=== PATIENT | female | born 1960 | race African-American/Black ===

== ENCOUNTER 2016-11-04 10:06 | Day surgery (SDC) | payer OTHER ==
[~2016-11-04 10:06] MED LIST: ASAB PO; ATV.5 PO; DIL4TAB PO; FLEX PO; KAPIDEX60 MG PO; L20 PO; NEUR300 PO; PERCOCET 7.5/321 TAB PO; TIAZA3 PO; TOPXL25 PO; TRULICITY1.5 MG/0.5 SQ; VALIUM10 MG PO
[2016-11-07] MEDS ORDERED: CRESTOR20 MG PO (14:24)
[2016-11-07] MEDS ORDERED: LOP25 PO (14:25)
[2016-11-07] MEDS ORDERED: LEVSINTAB PO (14:26)
[2016-11-07] MEDS ORDERED: LEVSINTAB SL (14:26)
[2016-11-07] MEDS ORDERED: COZ25 PO (14:26)
[2016-11-07] MEDS ORDERED: KAPIDEX60 MG PO (14:29)
[2016-11-07] MEDS ORDERED: PRADAXA150 MG PO (14:30)
[2016-12-15] MEDS ORDERED: L40 PO (18:02)
[2016-12-15] MEDS ORDERED: XARELTO20 MG PO (18:03)
[2016-12-15] MEDS ORDERED: NEXIUM40 PO (18:03)
[2017-02-12] MEDS ORDERED: SACU1TAB4 PO (16:23)
[2017-02-12] MEDS ORDERED: COREG3 PO (16:26)
[2017-02-12] MEDS ORDERED: P5 PO (16:28)
[2017-02-12] MEDS ORDERED: VOLTXR100 PO (16:31)
[2017-02-12] MEDS ORDERED: PLAQ200B PO (16:39)
[2017-02-17] MEDS ORDERED: AMB5 PO (09:03)
[2017-02-17] MEDS ORDERED: NORCO1 TA2 PO (09:04)
== END 2016-11-04 23:59 | disposition home or self-care (01) ==
LOC: DMU 10:06
DX: R07.9 Chest pain, unspecified (principal); R13.10 Dysphagia, unspecified; K21.9 Gastro-esophageal reflux disease without esophagitis; I10 Essential (primary) hypertension
CPT/HCPCS: 91034; A9270-GY; C1894

== ENCOUNTER 2016-11-12 11:16 | Inpatient (IN) | payer OTHER ==
[2016-11-10 09:39] LABS: BASOPHILS 0.2 %; BASOPHILS ABSOLUTE 0.01 10/3/uL (0.0-0.16); EOSINOPHILS 0.6 %; EOSINOPHILS ABSOLUTE 0.04 10/3/uL (0.0-0.53); HEMATOCRIT 39.4 % (36.0-48.0); HEMOGLOBIN 12.2 g/dL (12.0-16.0); IMMATURE GRANULOCYTES 0.2 %; IMMATURE GRANULOCYTES ABSOLUTE 0.01 10/3/uL (0.0-0.11); LYMPHOCYTES 32.7 %; LYMPHOCYTES ABSOLUTE 2.03 10/3/uL (0.67-4.30); MEAN CORPUSCULAR HEMOGLOB 24.9 pg (26.0-34.0); MEAN CORPUSCULAR VOLUME 80.4 fL (80-100); MEAN PLATELET VOLUME 10.2 fL (9.2-13.0); MONOCYTES 5.8 %; MONOCYTES ABSOLUTE 0.36 10/3/uL (0.21-1.20); NEUTROPHILS 60.5 %; NEUTROPHILS ABSOLUTE 3.76 10/3/uL (2.02-8.40); PLATELET COUNT 214 10/3/uL (150-400); RBC DISTRIBUTION WIDTH 18.4 % (12.0-16.0)
[2016-11-10 09:40] LABS: MANUAL DIFF NO %; WHITE BLOOD CELLS 6.2 10/3/uL (4.5-10.5)
[2016-11-10 09:52] LABS: A/G RATIO 1.1 (0.7-1.9); ALBUMIN 3.7 G/DL (3.5-5.0); BUN (BLOOD UREA NITROGEN) 11 MG/DL (6-23); CALCIUM, SERUM 10.4 MG/DL (8.5-10.4); CHLORIDE, SERUM 103 MMOL/L (96-112); CO2 (CARBON DIOXIDE) 29 MMOL/L (24-34); GFR AFRICAN AMERICAN 65 ML/MIN (>=60); GFR NON AFRICAN AMERICAN 56 ML/MIN (>=60); GLOBULIN 3.3 G/DL (2.5-4.1); SGOT(AST) 21 U/L (5-40); SGPT(ALT) 21 U/L (5-65); SODIUM, SERUM 142 MMOL/L (135-148); TOTAL BILIRUBIN 0.5 MG/DL (0-1.2)
[2016-11-10 09:53] LABS: ALKALINE PHOSPHATASE 90 U/L (45-117); GLUCOSE, SERUM 148 MG/DL (60-99); POTASSIUM, SERUM 3.6 MMOL/L (3.5-5.3)
--- NOTE | ~2016-11-12 | OP ---
Record Of Operation [facility] [address] [place]. [address] NAME: MARIO DENSON : 62 STATUS : ADM IN PAT#: [id number] AGE: 56 ADM/REG DATE : 11/12/16 MR#: [id number] REPORT SERV DATE: 11/13/16 DICTATED BY: JACKSON CAMPBELL DATE: 11/13/16 REPORT STATUS : Draft TRANSCRIBED BY: MODJoan DATE: 11/13/16 DATE OF PROCEDURE: 11/12/2016 PREOPERATIVE DIAGNOSIS: Persistent dysphagia status post redo hiatal hernia repair and Alli fundoplication in 2016. POSTOPERATIVE DIAGNOSIS: Persistent dysphagia status post redo hiatal hernia repair and Alli fundoplication in 2016. PROCEDURE: Laparoscopic lysis of adhesions, revision of Alli/Toupet partial fundoplication, and esophageal dilatation. RESIDENT SURGEON: Marlin Orourke MD. ANESTHESIA: General. ESTIMATED BLOOD LOSS: 500 mL. DETAILS OF PROCEDURE: The patient arrived in the operating suite and was placed on the table in supine position. General anesthesia obtained via an endotracheal tube. The patient placed in modified lithotomy. Melissa catheter was inserted. The abdomen was prepped and draped in a sterile manner. 0.5% Marcaine with epinephrine was infiltrated over the supraumbilical left rectus muscle. A small incision was performed. A 10 mm blunt trocar was inserted. The peritoneal cavity was insufflated with CO2 gas to 15 mmHg pressure. The patient was placed in reverse Trendelenburg. Additional trocars were inserted in the bilateral anterior axillary lines, left subxiphoid, and right paramedian regions. Instruments were introduced. The lateral segment of the left lobe of the liver was retracted anteriorly. There were intense adhesions of stomach to the liver, which were carefully taken down both bluntly and sharply. There never appeared to be any gastric or esophageal injury. There was a serosal tear of the stomach that was ultimately repaired with 0 Ethibond suture. Mobilization gradually was performed quite tediously over a couple of hours and it became apparent where the prior sutures from fundoplication were and these were gradually removed. A 36 dilator could not be placed into the stomach initially, but once all sutures were released allowing the 360-degree wrap to effectively become a 270- degree wrap up to a 44 dilator were easily passed into the stomach without resistance. There was no evidence of hiatal hernia and the crura did not appear excessively tight. Hemostasis appeared good. Nu-Knit Surgicel was placed along the posterior aspect of the lateral segment of the left lobe of the liver, which had previously bled, but was not at the completion of the procedure. The peritoneal cavity was desufflated. Trocars were removed. Skin closure at all sites was performed with subcuticular 4-0 Monocryl, sterile dressing applied, and the patient was awakened, extubated, and taken to PACU. /THAO Record Of [address] [address] NAME: MARIO DENSON : 62 STATUS : ADM IN [facility]#: [id number] AGE: 56 ADM/REG DATE : 11/12/16 MR#: [id number] REPORT SERV DATE: 11/13/16 DICTATED BY: JACKSON CAMPBELL DATE: 11/13/16 REPORT STATUS : Draft TRANSCRIBED BY: THAO DATE: 11/13/16 Jackson Campbell M.D. / [id number] CC: Tawanda Larios MD
[~2016-11-12 11:16] MED LIST changes: +COZ25 PO; +CRESTOR20 MG PO; +LEVSINTAB PO; +LEVSINTAB SL; +LOP25 PO; +PRADAXA150 MG PO
[2016-11-12 23:13] LABS: BASOPHILS 0 %; EOSINOPHILS 0 %; HEMATOCRIT 37.6 % (36.0-48.0); HEMOGLOBIN 11.8 g/dL (12.0-16.0); IMMATURE GRANULOCYTES 0.2 %; IMMATURE GRANULOCYTES ABSOLUTE 0.02 10/3/uL (0.0-0.11); MEAN CORPUS HGB CONC 31.4 g/dL (32.0-36.0); MEAN CORPUSCULAR HEMOGLOB 25.2 pg (26.0-34.0); MEAN CORPUSCULAR VOLUME 80.3 fL (80-100); MEAN PLATELET VOLUME 10.4 fL (9.2-13.0); MONOCYTES 0.6 %; MONOCYTES ABSOLUTE 0.07 10/3/uL (0.21-1.20); NEUTROPHILS 95.2 %; NEUTROPHILS ABSOLUTE 11.81 10/3/uL (2.02-8.40); PLATELET COUNT 154 10/3/uL (150-400); RBC DISTRIBUTION WIDTH 18.2 % (12.0-16.0); RED CELL COUNT 4.68 10/6/uL (4.0-5.6)
[2016-11-12 23:20] LABS: MANUAL DIFF NO %; WHITE BLOOD CELLS 12.4 10/3/uL (4.5-10.5)
[2016-11-12 23:21] LABS: BUN (BLOOD UREA NITROGEN) 12 MG/DL (6-23); CALCIUM, SERUM 9.7 MG/DL (8.5-10.4); CHLORIDE, SERUM 104 MMOL/L (96-112); CREATININE 1.08 MG/DL (0.55-1.02); GFR AFRICAN AMERICAN 67 ML/MIN (>=60); GFR NON AFRICAN AMERICAN 58 ML/MIN (>=60); GLUCOSE, SERUM 163 MG/DL (60-99); POTASSIUM, SERUM 3.5 MMOL/L (3.5-5.3); SODIUM, SERUM 141 MMOL/L (135-148)
[2016-11-12 23:22] LABS: CO2 (CARBON DIOXIDE) 23 MMOL/L (24-34)
[2016-11-14] MEDS ORDERED: LEVSINTAB PO (09:04)
[2016-11-14] MEDS ORDERED: NORCO1 TA2 PO (09:04)
[2016-11-15] MEDS ORDERED: ASAB PO (19:26)
[2016-11-15] MEDS ORDERED: ALBUTEROL5 INH (19:26)
[2016-11-15] MEDS ORDERED: PROAIR HFA INH (19:26)
[2016-11-15] MEDS ORDERED: FLEX PO (19:27)
[2016-11-15] MEDS ORDERED: L40 PO (19:27)
[2016-11-15] MEDS ORDERED: PRADAXA150 MG PO (19:27)
[2016-11-15] MEDS ORDERED: NEUR300 PO (19:28)
[2016-11-15] MEDS ORDERED: COZ25 PO (19:28)
[2016-11-15] MEDS ORDERED: LEVSINTAB PO (19:28)
[2016-11-15] MEDS ORDERED: LOP25 PO (19:29)
[2016-11-15] MEDS ORDERED: PERCOCET 7.5/321 TAB PO (19:29)
[2016-11-15] MEDS ORDERED: CRESTOR20 MG PO (19:29)
[2016-11-15] MEDS ORDERED: ZOFRAN4 PO (19:30)
[2016-12-15] MEDS ORDERED: L40 PO (18:02)
[2016-12-15] MEDS ORDERED: XARELTO20 MG PO (18:03)
[2016-12-15] MEDS ORDERED: NEXIUM40 PO (18:03)
[2017-02-12] MEDS ORDERED: SACU1TAB4 PO (16:23)
[2017-02-12] MEDS ORDERED: COREG3 PO (16:26)
[2017-02-12] MEDS ORDERED: P5 PO (16:28)
[2017-02-12] MEDS ORDERED: VOLTXR100 PO (16:31)
[2017-02-12] MEDS ORDERED: PLAQ200B PO (16:39)
[2017-02-17] MEDS ORDERED: AMB5 PO (09:03)
[2017-02-17] MEDS ORDERED: NORCO1 TA2 PO (09:04)
== END 2016-11-14 13:42 | disposition home or self-care (01) | DRG 328 ==
LOC: SDC 11:16 → 4SO 21:03
PROVIDERS: Specialist
DX: K91.89 Other postprocedural complications and disorders of digestive system (principal); I10 Essential (primary) hypertension; R13.19 Other dysphagia; Y83.8 Other surgical procedures as the cause of abnormal reaction of the patient, or of later complication, without mention of misadventure at the time of the procedure; K21.9 Gastro-esophageal reflux disease without esophagitis; K58.9 Irritable bowel syndrome, unspecified; M17.11 Unilateral primary osteoarthritis, right knee; I25.10 Atherosclerotic heart disease of native coronary artery without angina pectoris; Z95.5 Presence of coronary angioplasty implant and graft; Z95.0 Presence of cardiac pacemaker; Z79.01 Long term (current) use of anticoagulants; Z88.8 Allergy status to other drugs, medicaments and biological substances
CPT/HCPCS: 80048; 80053; 82962; 84703; 85025; 93005; A9270-GY; J0690; J2250; J2370; J2405; J2710; J3010

== ENCOUNTER 2016-11-15 16:01 | Inpatient (IN) | payer OTHER ==
--- NOTE | ~2016-11-15 | HP ---
History And Physical [facility] [address] [place]. [address] NAME: MARIO DENSON : 62 STATUS : ADM IN [facility]#: [id number] AGE: 56 ADM/REG DATE : 11/15/16 MR#: [id number] REPORT SERV DATE: 11/16/16 DICTATED BY: CHERYLE RICE DATE: 11/15/16 REPORT STATUS : Draft TRANSCRIBED BY: MODJoan DATE: 11/15/16 DATE OF ADMISSION: 11/15/2016 CHIEF COMPLAINT: Chest pain, post procedure. HISTORY OF PRESENT ILLNESS: The patient is a 56-year-old female with past medical history of coronary artery disease with two times stent, followed previously by Dr. Boyer and currently by Dr. Brand. Additionally, had required pacer placement after coding in GI lab in September, placed by Dr. Kaplan. The patient has had multiple re-do of Alli fundoplication due to weight loss including most recent done at [facility] by Dr. Campbell, date of procedure on 11/12/2016. The patient has had majority of care done at [facility], has had also procedures done at [place], and procedures done at [facility] who presents after being discharged yesterday, was doing well up until approximately 3 o'clock in the morning in which the patient reports that she had chest pain that did not stop, started noting that she was having more shortness of breath. Chest pain was worse when she was lying down. It has been constant, severe sharp without radiation. She has not really eaten much because of this pain. No diaphoresis. No headache, fever, or chills. No wheezing or swelling but has had shortness of breath. Pain is worsened by deep breathing and lying down, relieved by sitting up. The pain medication gave minimal improvement in emergency room. The patient has had history of blood clots, has restarted Pradaxa but was off for approximately a week, but was able to take a dose including today's dose. CT was negative for acute blood clot. The patient reports she has had similar episodes of this in the past in which she required drainage of 500 mL of fluid in lungs. REVIEW OF SYSTEMS: For 10-point review of systems: GENERAL: No fever or chills. EYES: No visual changes or pain. ENT: No congestion, ear pain or sinus drainage reported. NEURO: No headache or confusion. SKIN: No rashes or bruising. RESPIRATORY: Noted for shortness of breath. No cough. CV: Chest discomfort with lying down and fast heart rate. GI: No nausea, vomiting. Surgical site is mildly painful but tolerable. : No dysuria or hematuria reported. MUSCULOSKELETAL: No swelling or arthralgias reported. ENDO: Postop fatigue but no polyuria. HEME: No bleeding or bruising. IMMUNOLOGIC: No rhinorrhea. PSYCH: Has mild anxiety but no confusion. PAST MEDICAL HISTORY: Noted for 2 stents for coronary disease, currently followed by Dr. Brand. A pacer placement in September for code in GI lab placed by Dr. Kaplan. Neuropathy, L4-L5 tumor, pituitary tumor, parathyroid tumor to be followed by Dr. Campbell, hypertension, blood clots on Pradaxa, and multiple revisions of Alli fundoplication. History And Physical [address] [address] NAME: MARIO DENSON : 62 STATUS : ADM IN [facility]#: [id number] AGE: 56 ADM/REG DATE : 11/15/16 MR#: [id number] REPORT SERV DATE: 11/16/16 DICTATED BY: CHERYLE RICE DATE: 11/15/16 REPORT STATUS : Draft TRANSCRIBED BY: THAO DATE: 11/15/16 SURGERIES: Alli fundoplication, tubal st[place] [address] Boyer, pacer done by Dr. Kaplan. The patient has now undergone approximately her fourth Alli fundoplication. SOCIAL HISTORY: No smoking, alcohol, or illicits. at bedside. FAMILY HISTORY: Heart disease, hypertension, CHF. ALLERGIES: ROBAXIN AND LYRICA. HOME MEDICATIONS: ProAir, Proventil, aspirin, Flexeril, Pradaxa, Lasix, Neurontin, Levsin, Cozaar, metoprolol, Zofran, Percocet, and Crestor. PHYSICAL EXAMINATION: VITAL SIGNS: Blood pressure 121/90, temperature 98.5, pulse 114, respirations 28 to 30, O2 saturations 98% on room air. GENERAL: Appears older than stated age. Slightly frail, moderate discomfort. EYES: No scleral icterus. EOMI. ENT: Mildly dry mucous membranes. Tongue midline. Does have old changes on tongue secondary to adjusting battery acid as a child. RESPIRATORY: Shallow with decreased lung volume sounds on lower lung abdi. Mild rhonchi in lower lung abdi. CV: Tachycardic with a 1:1 beat pulse ratio. GI: Mild distention, mild discomfort. Surgical site clear. : Deferred. MUSCULOSKELETAL: Moves all extremities x4. SKIN: Warm, dry. HEME: No bleeding or bruising. NEURO: Alert and oriented. Moves all extremities x4. PSYCH: Mildly anxious but otherwise appropriate mood and affect. DATA: BNP elevated at 1087.8. BMP grossly within normal limits. Mildly elevated glucose at 120, troponin 0.07, magnesium 1.6. Chest pain profile; WBC count 11.5, H and H 11.5 and 36.7, platelets 124, INR 1.6. CT scan negative for PE, small pleural effusions and basilar atelectasis. Pneumoperitoneum secondary to gastric perforation versus recent surgery per discussion with ER, discussion with Radiology. ASSESSMENT AND PLAN: 1. Chest pain. 2. Dyspnea. 3. Pneumoperitoneum. 4. Coronary artery disease with pacer. 5. Blood clot. 6. Hypertension. 7. Pituitary parathyroid tumor. History And Physical [address] [address] NAME: MARIO DENSON : 62 STATUS : ADM IN [facility]#: [id number] AGE: 56 ADM/REG DATE : 11/15/16 MR#: [id number] REPORT SERV DATE: 11/16/16 DICTATED BY: CHERYLE RICE DATE: 11/15/16 REPORT STATUS : Draft TRANSCRIBED BY: THAO DATE: 11/15/16 8. Postop status. 9. Systemic inflammatory response syndrome. 10.Neuropathy. PLAN: 1. For chest pain, recently has been preopped at [place]. We will consult Dr. Brand. The patient has had mild troponin 0.07, has been currently on Pradaxa. We will continue. The patient reports she had similar episodes when she had pleural effusion requiring drainage although does have elevated BNP, does have trace pleural effusions on imaging, has been given IV diuresis in emergency room. We will try to give adequate pain control as possible. 2. Dyspnea, O2 stable, negative PE, currently on Pradaxa. We will give IV dose of steroids, followup imaging, does have elevated BNP, could be causal agent versus pneumoperitoneum postprocedure. 3. Pneumoperitoneum. She will need followup KUB recent surgery. We will need to consult Dr. Campbell and notify of admission. 4. Coronary artery disease with pacer, sees Dr. Kaplan, Dr. Brand. 5. Blood clot history, on Pradaxa. 6. Hypertension, on ARB, beta-jacqueline. 7. Pituitary parathyroid tumor, follows up with Dr. Campbell. 8. Postop status. We will again notify Dr. Campbell of admission. 9. SIRS, tachycardia with tachypnea although the patient was discharged with tachycardia, was not tachypneic at this time. The patient clearly states that at approximately 3 o'clock when she was at home, this is when chest pain and shortness of breath began to occur, has not really ate much since discharge, is on clears. 10.Neuropathy, on gabapentin. Disposition pending findings from above, Cardiology and surgical evaluation. DDN/MODL Cheryle Rice MD / [id number] CC: MD Betsy Da Silva MD
--- NOTE | ~2016-11-15 | DS ---
Discharge Summary [facility] [address] [place]. [address] NAME: MARIO DENSON : 62 STATUS : DIS IN PAT#: [id number] AGE: 56 ADM/REG DATE : 11/15/16 MR#: [id number] REPORT SERV DATE: 11/19/16 DICTATED BY: DATE: REPORT STATUS : Draft TRANSCRIBED BY: MODL DATE: 11/18/16 ADMISSION DATE: 11/15/2016 DISCHARGE DATE: 11/18/2016 DISCHARGE DIAGNOSES: 1. Dyspnea. 2. Acute on chronic systolic heart failure. 3. Atypical chest pain. 4. Pneumoperitoneum. 5. History of pulmonary embolism. 6. History of dysphagia. 7. Coronary artery disease with history of cardiac arrest. 8. Elevated troponin. 9. Constipation. 10.History of pleural effusion. 11.Anemia of chronic disease. 12.History of ischemic cardiomyopathy. 13.Redo Alli fundoplication on 11/13/2016. CONSULTATIONS: 1. GI, Dr. Jackson Campbell. 2. Cardiology, Dr. Milad Brand. PROCEDURES AND IMAGIN. On 11/15/[address] of the abdomen with contrast showed:. a. Postsurgical pneumoperitoneum status post Alli fundoplication. No evidence of abscess or bowel obstruction. b. Trace bilateral pleural effusions with lower lobe compressive subsegmental atelectasis. 2. On 11/15/2016 CTA of the chest showed:. a. No acute cardiopulmonary disease. b. No evidence of pulmonary embolus. 3. On 11/15/2016, portable chest x-ray showed right lower lobe airspace disease suspicious for pneumonia or atelectasis. Small postoperative pneumoperitoneum is seen. 4. On 11/16/2016 abdominal AP and upright showed persistent postoperative pneumoperitoneum. No diffuse ileus suspected. HOSPITAL COURSE: This is a pleasant 56-year-old female with past medical history of coronary artery disease with stenting. Please see admission H and P by Gustavo Stoner on 11/16/2016. I assumed care of this patient on 11/18/2016. During her stay, the patient has had a nuclear scan which showed that her current ejection fraction is 16%. The patient did have a cardiac arrest in the GI lab on 09/19/2016 due to complete heart block and PEA for which the patient received a pacemaker from Dr. Chris Ghosh. The patient exhibits no shortness of breath with exertion, and has no edema. Throughout this hospitalization, the patient did have elevated troponin of 0.07 which has gone down to 0.04, and her admission BNP was 1087.8. The patient's current kidney function is within normal Discharge Summary [address] [place]. [address] NAME: MARIO DENSON : 62 STATUS : DIS IN PAT#: [id number] AGE: 56 ADM/REG DATE : 11/15/16 MR#: [id number] REPORT SERV DATE: 11/19/16 DICTATED BY: DATE: REPORT STATUS : Draft TRANSCRIBED BY: MODL DATE: 11/18/16 limits with her BUN being 16, creatinine 0.95, GFR is 78. The patient has had to use IV Dilaudid several times for her chest pain, but the patient denies at this time. The patient does exhibit a normal biventricular sequential EKG. The patient also denies any difficulty swallowing at this time. PHYSICAL EXAMINATION: VITAL SIGNS: This morning were blood pressure 113/82, temp is 97.2, O2 saturation is 95% on room air, respirations are 16, and heart rate was 84. HEENT: Head is atraumatic and normocephalic. Pupils are equal, round, and reactive to light. The patient exhibits no focal deficits. GENERAL: The patient is a 56-year-old black female. The patient is cooperative and in no acute distress. NECK: Supple with no obvious thyromegaly or lymphadenopathy. CARDIAC: The patient is AV sequentially paced without ectopy at this time. The patient has no obvious murmurs, rubs, or gallops. LUNGS: Clear to auscultation with normal respiratory effort. GI: Abdomen is soft, and nontender with hyperactive bowel sounds. The patient has multiple abdominal incisions due to surgery on 11/13/2016. EXTREMITIES: No significant edema, clubbing, or cyanosis. Dorsalis pedis and posterior tibial pulses are present and equal bilaterally. MUSCULOSKELETAL: The patient moves all extremities x4. The patient is ambulatory without assistance. No difficulties with balance. SKIN: Skin is warm and dry with normal color and turgor. NEURO/PSYCH: The patient is alert oriented x3, pleasant cooperative. Cranial nerves 2 through 12 are grossly intact. DISCHARGE DIET: The patient is to go home on a soft GI diet of five small meals daily with protein drinks as needed to maintain protein intake of 50-60 g. DISCHARGE MEDICATIONS: 1. Aspirin 81 mg daily. 2. Bumex 1 mg twice daily. 3. Neurontin 300 mg twice daily. 4. Cozaar 12.5 mg daily. 5. Melatonin 3 mg daily. 6. Metoprolol 12.5 mg p.o. twice daily. 7. Potassium chloride 20 mEq daily. 8. Proventil nebulizer two puffs as needed q.4 hours p.r.n. shortness of breath. 9. Flexeril 10 mg p.r.n. at bedtime. 10.Pradaxa 150 mg twice daily. 11.Hyoscyamine 0.125 mg every 4 hours p.r.n. abdominal cramps. 12.Percocet 7.5/325 mg, 1.5 mg tablets every 6 hours as needed for pain. 13.Crestor 20 mg at bedtime. 14.Ondansetron 4 mg daily as needed for nausea. 15.Gaviscon 10-20 mL four times daily especially at bedtime as needed for chest discomfort. 16.Milk of magnesia 15 mL twice daily p.r.n. indigestion. Discharge Summary [address] [address] NAME: MARIO DENSON : 62 STATUS : DIS IN PAT#: [id number] AGE: 56 ADM/REG DATE : 11/15/16 MR#: [id number] REPORT SERV DATE: 11/19/16 DICTATED BY: DATE: REPORT STATUS : Draft TRANSCRIBED BY: MODL DATE: 11/18/16 17.Simethicone one to two tablets q.4 hours p.r.n., gas. 18.Carafate 1 g four times daily. ALLERGIES: THE PATIENT IS ALLERGIC TO METHOCARBAMOL AND PREGABALIN. DISCHARGE INSTRUCTIONS: The patient is to follow up with her PCP, Betsy Lopez; Dr. Campbell as directed, and Dr. Brand in three weeks. Should the patient develop any more abdominal pain or chest pain, the patient is to call her PCP, Dr. Brand, or to present to the emergency room. Approximately 40 minutes have been spent coordinating discharge care of this patient including [id number] encounter and summarization of the discharge. SLC/MODL Tatum Golden NP / [id number] CC: MD Betsy Patiño MD Robert McKoy, M.D. Stephen Roe, M.D.
[~2016-11-15 16:01] MED LIST changes: +NORCO1 TA2 PO
[2016-11-15 16:50] LABS: BASOPHILS 0.1 %; BASOPHILS ABSOLUTE 0.01 10/3/uL (0.0-0.16); EOSINOPHILS 0.2 %; EOSINOPHILS ABSOLUTE 0.02 10/3/uL (0.0-0.53); ER CBC TAT 0 Hrs 09 Mins; HEMATOCRIT 36.7 % (36.0-48.0); HEMOGLOBIN 11.5 g/dL (12.0-16.0); IMMATURE GRANULOCYTES 0.2 %; IMMATURE GRANULOCYTES ABSOLUTE 0.02 10/3/uL (0.0-0.11); LYMPHOCYTES ABSOLUTE 1.15 10/3/uL (0.67-4.30); MANUAL DIFF NO %; MEAN CORPUS HGB CONC 31.3 g/dL (32.0-36.0); MEAN CORPUSCULAR HEMOGLOB 24.9 pg (26.0-34.0); MEAN CORPUSCULAR VOLUME 79.6 fL (80-100); MEAN PLATELET VOLUME 10.7 fL (9.2-13.0); MONOCYTES ABSOLUTE 0.57 10/3/uL (0.21-1.20); NEUTROPHILS 84.5 %; NEUTROPHILS ABSOLUTE 9.71 10/3/uL (2.02-8.40); PLATELET COUNT 124 10/3/uL (150-400); RBC DISTRIBUTION WIDTH 18.4 % (12.0-16.0); RED CELL COUNT 4.61 10/6/uL (4.0-5.6); WHITE BLOOD CELLS 11.5 10/3/uL (4.5-10.5)
[2016-11-15 16:57] LABS: INTERNATIONAL NORMAL RATI 1.6 UNITS (-); PARTIAL THROMBO TIME 60.8 SEC (22.5-37.2); PROTIME (NOT ORD) 18.8 SEC (12.0-14.5)
[2016-11-15 17:01] LABS: BUN (BLOOD UREA NITROGEN) 10 MG/DL (6-23); CALCIUM, SERUM 9.8 MG/DL (8.5-10.4); CHLORIDE, SERUM 101 MMOL/L (96-112); CREATININE 0.88 MG/DL (0.55-1.02); GFR AFRICAN AMERICAN 86 ML/MIN (>=60); GFR NON AFRICAN AMERICAN 74 ML/MIN (>=60); POTASSIUM, SERUM 3.6 MMOL/L (3.5-5.3); SODIUM, SERUM 140 MMOL/L (135-148)
[2016-11-15 17:05] LABS: CO2 (CARBON DIOXIDE) 28 MMOL/L (24-34); GLUCOSE, SERUM 120 MG/DL (60-99)
[2016-11-15 17:06] LABS: CHEST PAIN PROFILE TAT 0 Hrs 25 Mins; TROPONIN I 0.07 NG/ML (<0.05)
[2016-11-15] MEDS ORDERED: PROAIR HFA INH (19:26)
[2016-11-15] MEDS ORDERED: ASAB PO (19:26)
[2016-11-15] MEDS ORDERED: ALBUTEROL5 INH (19:26)
[2016-11-15] MEDS ORDERED: L40 PO (19:27)
[2016-11-15] MEDS ORDERED: FLEX PO (19:27)
[2016-11-15] MEDS ORDERED: PRADAXA150 MG PO (19:27)
[2016-11-15] MEDS ORDERED: LEVSINTAB PO (19:28)
[2016-11-15] MEDS ORDERED: COZ25 PO (19:28)
[2016-11-15] MEDS ORDERED: NEUR300 PO (19:28)
[2016-11-15] MEDS ORDERED: PERCOCET 7.5/321 TAB PO (19:29)
[2016-11-15] MEDS ORDERED: CRESTOR20 MG PO (19:29)
[2016-11-15] MEDS ORDERED: LOP25 PO (19:29)
[2016-11-15] MEDS ORDERED: ZOFRAN4 PO (19:30)
[2016-11-16 05:04] LABS: BASOPHILS 0.1 %; BASOPHILS ABSOLUTE 0.01 10/3/uL (0.0-0.16); EOSINOPHILS 0 %; HEMATOCRIT 34.7 % (36.0-48.0); IMMATURE GRANULOCYTES 0.3 %; IMMATURE GRANULOCYTES ABSOLUTE 0.03 10/3/uL (0.0-0.11); LYMPHOCYTES 5.5 %; MEAN CORPUS HGB CONC 31.7 g/dL (32.0-36.0); MEAN CORPUSCULAR VOLUME 78.9 fL (80-100); MEAN PLATELET VOLUME 11.6 fL (9.2-13.0); MONOCYTES 1.7 %; MONOCYTES ABSOLUTE 0.19 10/3/uL (0.21-1.20); NEUTROPHILS 92.4 %; NEUTROPHILS ABSOLUTE 10.11 10/3/uL (2.02-8.40); PLATELET COUNT 143 10/3/uL (150-400); RBC DISTRIBUTION WIDTH 18.4 % (12.0-16.0); WHITE BLOOD CELLS 10.9 10/3/uL (4.5-10.5)
[2016-11-16 05:06] LABS: MANUAL DIFF NO %
[2016-11-16 05:22] LABS: BUN (BLOOD UREA NITROGEN) 9 MG/DL (6-23); CALCIUM, SERUM 9.5 MG/DL (8.5-10.4); CHLORIDE, SERUM 104 MMOL/L (96-112); CO2 (CARBON DIOXIDE) 18 MMOL/L (24-34); CREATININE 0.76 MG/DL (0.55-1.02); GFR AFRICAN AMERICAN 102 ML/MIN (>=60); GFR NON AFRICAN AMERICAN 88 ML/MIN (>=60); GLUCOSE, SERUM 140 MG/DL (60-99); POTASSIUM, SERUM 4.3 MMOL/L (3.5-5.3); SODIUM, SERUM 138 MMOL/L (135-148)
[2016-11-16 05:23] LABS: TROPONIN I 0.06 NG/ML (<0.05)
[2016-11-16 05:34] LABS: ANISOCYTOSIS 1+ (5-10/OIF) (0-5/OIF); PLATELET ESTIMATE SLT DEC (ADEQUATE)
[2016-11-16 05:35] LABS: HYPOCHROMIA 1+ (3-10/OIF) (0-2/OIF); MICROCYTES 1+ (5-10/OIF) (0-5/OIF)
[2016-11-17 04:17] LABS: BASOPHILS 0 %; EOSINOPHILS 0 %; HEMOGLOBIN 10.3 g/dL (12.0-16.0); IMMATURE GRANULOCYTES 0.2 %; IMMATURE GRANULOCYTES ABSOLUTE 0.02 10/3/uL (0.0-0.11); LYMPHOCYTES 11.2 %; LYMPHOCYTES ABSOLUTE 1.02 10/3/uL (0.67-4.30); MEAN CORPUS HGB CONC 32.2 g/dL (32.0-36.0); MEAN CORPUSCULAR HEMOGLOB 25.4 pg (26.0-34.0); MEAN CORPUSCULAR VOLUME 78.8 fL (80-100); MEAN PLATELET VOLUME 10.8 fL (9.2-13.0); MONOCYTES 6.4 %; MONOCYTES ABSOLUTE 0.58 10/3/uL (0.21-1.20); NEUTROPHILS 82.2 %; PLATELET COUNT 179 10/3/uL (150-400); RBC DISTRIBUTION WIDTH 18.3 % (12.0-16.0); RED CELL COUNT 4.06 10/6/uL (4.0-5.6); WHITE BLOOD CELLS 9.1 10/3/uL (4.5-10.5)
[2016-11-17 04:20] LABS: MANUAL DIFF NO %
[2016-11-17 04:29] LABS: BUN (BLOOD UREA NITROGEN) 16 MG/DL (6-23); CHLORIDE, SERUM 102 MMOL/L (96-112); CO2 (CARBON DIOXIDE) 27 MMOL/L (24-34); CREATININE 0.83 MG/DL (0.55-1.02); GFR AFRICAN AMERICAN 92 ML/MIN (>=60); GFR NON AFRICAN AMERICAN 79 ML/MIN (>=60); GLUCOSE, SERUM 155 MG/DL (60-99); SODIUM, SERUM 141 MMOL/L (135-148)
[2016-11-18 05:08] LABS: BASOPHILS 0.1 %; BASOPHILS ABSOLUTE 0.01 10/3/uL (0.0-0.16); EOSINOPHILS 2.8 %; EOSINOPHILS ABSOLUTE 0.19 10/3/uL (0.0-0.53); HEMATOCRIT 32.1 % (36.0-48.0); IMMATURE GRANULOCYTES 0.1 %; IMMATURE GRANULOCYTES ABSOLUTE 0.01 10/3/uL (0.0-0.11); LYMPHOCYTES 32.8 %; LYMPHOCYTES ABSOLUTE 2.19 10/3/uL (0.67-4.30); MEAN CORPUS HGB CONC 31.2 g/dL (32.0-36.0); MEAN CORPUSCULAR HEMOGLOB 25.1 pg (26.0-34.0); MEAN CORPUSCULAR VOLUME 80.5 fL (80-100); MEAN PLATELET VOLUME 10.2 fL (9.2-13.0); MONOCYTES 6.4 %; MONOCYTES ABSOLUTE 0.43 10/3/uL (0.21-1.20); NEUTROPHILS 57.8 %; NEUTROPHILS ABSOLUTE 3.85 10/3/uL (2.02-8.40); PLATELET COUNT 186 10/3/uL (150-400); RBC DISTRIBUTION WIDTH 18.5 % (12.0-16.0); RED CELL COUNT 3.99 10/6/uL (4.0-5.6); WHITE BLOOD CELLS 6.7 10/3/uL (4.5-10.5)
[2016-11-18 05:09] LABS: MANUAL DIFF NO %
[2016-11-18 05:23] LABS: A/G RATIO 0.8 (0.7-1.9); ALBUMIN 2.7 G/DL (3.5-5.0); ALKALINE PHOSPHATASE 71 U/L (45-117); BUN (BLOOD UREA NITROGEN) 16 MG/DL (6-23); CHLORIDE, SERUM 102 MMOL/L (96-112); CO2 (CARBON DIOXIDE) 30 MMOL/L (24-34); CREATININE 0.95 MG/DL (0.55-1.02); GFR AFRICAN AMERICAN 78 ML/MIN (>=60); GFR NON AFRICAN AMERICAN 67 ML/MIN (>=60); GLOBULIN 3.4 G/DL (2.5-4.1); GLUCOSE, SERUM 120 MG/DL (60-99); POTASSIUM, SERUM 3.4 MMOL/L (3.5-5.3); SGOT(AST) 15 U/L (5-40); SGPT(ALT) 15 U/L (5-65); SODIUM, SERUM 141 MMOL/L (135-148); TOTAL BILIRUBIN 0.3 MG/DL (0-1.2); TOTAL PROTEIN 6.1 G/DL (6.0-8.5)
[2016-11-18] MEDS ORDERED: BUM1 PO (10:30)
[2016-11-18] MEDS ORDERED: LOP25 PO (10:31)
[2016-11-18] MEDS ORDERED: MELA3 PO (10:32)
[2016-11-18] MEDS ORDERED: KDUR10 (10:33)
[2016-11-18] MEDS ORDERED: KDUR20 PO (10:35)
[2016-11-18] MEDS ORDERED: GAVISCO2 (10:37)
[2016-11-18] MEDS ORDERED: MOMUD PO (10:38)
[2016-11-18] MEDS ORDERED: CARASPUDL PO (10:39)
[2016-11-18] MEDS ORDERED: GENASYME80 MG (10:39)
[2016-12-15] MEDS ORDERED: L40 PO (18:02)
[2016-12-15] MEDS ORDERED: XARELTO20 MG PO (18:03)
[2016-12-15] MEDS ORDERED: NEXIUM40 PO (18:03)
[2017-02-12] MEDS ORDERED: SACU1TAB4 PO (16:23)
[2017-02-12] MEDS ORDERED: COREG3 PO (16:26)
[2017-02-12] MEDS ORDERED: P5 PO (16:28)
[2017-02-12] MEDS ORDERED: VOLTXR100 PO (16:31)
[2017-02-12] MEDS ORDERED: PLAQ200B PO (16:39)
[2017-02-17] MEDS ORDERED: AMB5 PO (09:03)
[2017-02-17] MEDS ORDERED: NORCO1 TA2 PO (09:04)
== END 2016-11-18 14:42 | disposition home or self-care (01) | DRG 292 ==
LOC: ER 16:01 → 7NO 20:36
PROVIDERS: Hospitalist; Nurse Practitioner; Student in an Organized Health Care Education/Training Program; Urology
DX: I50.23 Acute on chronic systolic (congestive) heart failure (principal); I31.9 Disease of pericardium, unspecified; R65.10 Systemic inflammatory response syndrome (SIRS) of non-infectious origin without acute organ dysfunction; K66.8 Other specified disorders of peritoneum; R13.10 Dysphagia, unspecified; I25.10 Atherosclerotic heart disease of native coronary artery without angina pectoris; D63.8 Anemia in other chronic diseases classified elsewhere; I25.5 Ischemic cardiomyopathy; K59.00 Constipation, unspecified; Z86.711 Personal history of pulmonary embolism; Z95.5 Presence of coronary angioplasty implant and graft; Z95.0 Presence of cardiac pacemaker; Z79.82 Long term (current) use of aspirin; Z86.718 Personal history of other venous thrombosis and embolism; Z98.890 Other specified postprocedural states
CPT/HCPCS: 71010; 71275; 74020; 74160; 78452; 80048; 80053; 82330; 82962; 83735; 83880; 84132; 84145; 84484; 85025; 85610; 85730; 93005; 93017; 96374; 99285; A9270-GY; A9502; J0153; J1170; J2405; J2920; Q9967

== ENCOUNTER 2017-01-17 06:55 | Emergency (ER) | payer OTHER, MEDICARE ==
[~2017-01-17 06:55] MED LIST changes: +ALBUTEROL5 INH; +BUM1 PO; +CARASPUDL PO; +GAVISCO2; +GENASYME80 MG; +KDUR10; +KDUR20 PO; +L40 PO; +MELA3 PO; +MOMUD PO; +NEXIUM40 PO; +PROAIR HFA INH; +XARELTO20 MG PO; +ZOFRAN4 PO
[2017-01-17 08:14] LABS: BASOPHILS 0.1 %; BASOPHILS ABSOLUTE 0.01 10/3/uL (0.0-0.16); EOSINOPHILS ABSOLUTE 0.09 10/3/uL (0.0-0.53); ER CBC TAT 0 Hrs 10 Mins; HEMOGLOBIN 11.7 g/dL (12.0-16.0); IMMATURE GRANULOCYTES 0.1 %; IMMATURE GRANULOCYTES ABSOLUTE 0.01 10/3/uL (0.0-0.11); LYMPHOCYTES 19.5 %; LYMPHOCYTES ABSOLUTE 1.77 10/3/uL (0.67-4.30); MEAN CORPUSCULAR HEMOGLOB 25.9 pg (26.0-34.0); MEAN CORPUSCULAR VOLUME 81.2 fL (80-100); MEAN PLATELET VOLUME 10.9 fL (9.2-13.0); MONOCYTES 5.7 %; MONOCYTES ABSOLUTE 0.52 10/3/uL (0.21-1.20); NEUTROPHILS 73.6 %; NEUTROPHILS ABSOLUTE 6.67 10/3/uL (2.02-8.40); PLATELET COUNT 148 10/3/uL (150-400); RBC DISTRIBUTION WIDTH 16.1 % (12.0-16.0); RED CELL COUNT 4.51 10/6/uL (4.0-5.6); WHITE BLOOD CELLS 9.1 10/3/uL (4.5-10.5)
[2017-01-17 08:15] LABS: HEMATOCRIT 36.6 % (36.0-48.0)
[2017-01-17 08:16] LABS: MANUAL DIFF NO %
[2017-01-17 08:21] LABS: INTERNATIONAL NORMAL RATI 1.1 UNITS (-); PARTIAL THROMBO TIME 36.9 SEC (22.5-37.2)
[2017-01-17 08:23] LABS: PROTIME (NOT ORD) 14.5 SEC (12.0-14.5)
[2017-01-17 08:32] LABS: BUN (BLOOD UREA NITROGEN) 19 MG/DL (6-23); CALCIUM, SERUM 9.8 MG/DL (8.5-10.4); CHLORIDE, SERUM 104 MMOL/L (96-112); CO2 (CARBON DIOXIDE) 29 MMOL/L (24-34); CREATININE 1.07 MG/DL (0.55-1.02); GFR AFRICAN AMERICAN 68 ML/MIN (>=60); GFR NON AFRICAN AMERICAN 58 ML/MIN (>=60); POTASSIUM, SERUM 4.2 MMOL/L (3.5-5.3); SODIUM, SERUM 139 MMOL/L (135-148)
[2017-01-17 08:33] LABS: CHEST PAIN PROFILE TAT 0 Hrs 29 Mins; GLUCOSE, SERUM 115 MG/DL (60-99); TROPONIN I 0.05 NG/ML (<0.05)
[2017-01-17 08:36] LABS: PLATELET ESTIMATE SLT DEC (ADEQUATE)
[2017-01-17 09:22] LABS: ASCORBIC ACID (UR NOT ORDER) 20 (NEG); BILIRUBIN, URINE NEGATIVE (NEG); ER URINALYSIS TAT 0 Hrs 11 Mins; KETONE, URINE NEGATIVE (NEG); LEUKOCYTE ESTERASE(NOT OR NEG (NEG); NITRITE (URINE) NEG (NEG); WBC (NOT ORDERED) (RFLEX) 1 (0-5)
[2017-02-12] MEDS ORDERED: SACU1TAB4 PO (16:23)
[2017-02-12] MEDS ORDERED: COREG3 PO (16:26)
[2017-02-12] MEDS ORDERED: P5 PO (16:28)
[2017-02-12] MEDS ORDERED: VOLTXR100 PO (16:31)
[2017-02-12] MEDS ORDERED: PLAQ200B PO (16:39)
[2017-02-17] MEDS ORDERED: AMB5 PO (09:03)
[2017-02-17] MEDS ORDERED: NORCO1 TA2 PO (09:04)
== END 2017-01-17 10:12 | disposition home or self-care (01) ==
LOC: ER 06:55
PROVIDERS: Nurse Practitioner Family
DX: R07.89 Other chest pain (principal); J45.909 Unspecified asthma, uncomplicated; I25.2 Old myocardial infarction; I11.0 Hypertensive heart disease with heart failure; I50.9 Heart failure, unspecified; K21.9 Gastro-esophageal reflux disease without esophagitis; D64.9 Anemia, unspecified; I25.10 Atherosclerotic heart disease of native coronary artery without angina pectoris; I42.9 Cardiomyopathy, unspecified; Z87.01 Personal history of pneumonia (recurrent); Z95.5 Presence of coronary angioplasty implant and graft; Z86.711 Personal history of pulmonary embolism; Z88.8 Allergy status to other drugs, medicaments and biological substances; Z79.82 Long term (current) use of aspirin; Z79.899 Other long term (current) drug therapy
CPT/HCPCS: 71010; 80048; 81001; 83605; 83735; 83880; 84484; 85025; 85610; 85730; 87040; 93005; 96374; 96375; 99285; J1200; J1885